=== PATIENT | male | born 1960 | race Caucasian/White ===

== ENCOUNTER 2022-03-22 05:33 | Day surgery (SDC) | payer OTHER ==
[2022-03-15 15:18] LABS: BASOPHILS % (AUTO) 0.3 % (0-1); EOSINOPHILS # (AUTO) 0.1 X10'3 (0-0.9); EOSINOPHILS % (AUTO) 1.9 % (0-6); LYMPHOCYTES # (AUTO) 1.5 X10'3 (1.1-4.8); LYMPHOCYTES % (AUTO) 23.3 % (21-51); MEAN CORPUSCULAR HEMOGLOBIN 29.2 PG (27.0-31.0); MEAN CORPUSCULAR HGB CONC 33.3 g/dL (33.0-36.5); MEAN CORPUSCULAR VOLUME 87.6 FL (78-98); MEAN PLATELET VOLUME 7.3 FL (7.4-10.4); MONOCYTES # (AUTO) 0.8 X10'3 (0-0.9); MONOCYTES % (AUTO) 12.5 % (2-12); NEUTROPHILS # (AUTO) 4.1 X10'3 (1.8-7.7); PRE OP HEMATOCRIT 46.9 % (42.0-52.0); PRE OP HEMOGLOBIN 15.6 g/dL (14.0-17.9); PRE OP PLATELET COUNT 220 X10'3 (140-440); RED BLOOD COUNT 5.36 X10'6 (4.70-6.10); RED CELL DISTRIBUTION WIDTH 14.2 % (11.5-14.5)
[2022-03-15 15:42] LABS: ALBUMIN 4.4 G/DL (3.4-5.0); ALBUMIN/GLOBULIN RATIO 1.3 (1.1-1.5); ALKALINE PHOSPHATASE 71 IU/L (46-116); BLOOD UREA NITROGEN 15 MG/DL (7-18); BUN/CREATININE RATIO 14.4 (5.4-32.0); CALCIUM 9.2 MG/DL (8.5-10.1); CHLORIDE 102 MMOL/L (99-107); CREATININE 1.04 MG/DL (0.60-1.10); PRE OP ALT 23 U/L (30-65); PRE OP ANION GAP 7 (8-16); PRE OP AST 22 U/L (10-37); PRE OP BILIRUB, TOTAL 0.4 MG/DL (0.0-1.0); PRE OP GLUCOSE 110 MG/DL (70-104); PRE OP POTASSIUM 3.8 MMOL/L (3.4-5.1); PRE OP SODIUM 140 MMOL/L (135-145); TOTAL CARBON DIOXIDE 30.7 MMOL/L (24-32); TOTAL PROTEIN 7.8 G/DL (6.4-8.2); eGFR 72 ML/MIN
[~2022-03-22] VITALS: Ht 177.8 cm; Wt 85.7 kg
[2022-03-22] VITALS (15 sets, daily range): BP systolic 131–169; BP diastolic 70–93
[~2022-03-22 05:33] MED LIST: ATOR40TA72 PO; ceFAZolin inj. 2,000 MG in dextrose 5%-water 100 ML IV ONE; famotidine 20mg tablet PO ONE; ringers solution, lacted 1,000 ML IV SCH
[2022-03-22] MEDS ORDERED: LIDOcaine 1% 30ml preserv. free vial ONE (07:02)
[2022-03-22] MEDS ORDERED: BUPIVAcaine/PF 2.5 mg/ml (0.25%) 30ml vial ONE (07:03)
[2022-03-22] MEDS ORDERED: fentaNYL/PF 50MCG/1 ML 2ML syringe ONE (07:30)
[2022-03-22] MEDS ORDERED: midazolam 1 mg/ML 2ml injection ONE (07:31)
[2022-03-22] MEDS ORDERED: propofol inj 20 ML IV ONE (07:33)
[2022-03-22] MEDS ORDERED: LIDOcaine 2% (20mg/ml) 5ml vial ONE (07:33)
[2022-03-22] MEDS ORDERED: rocuronium 10mg/ml inj IV ONE (07:33)
[2022-03-22] MEDS ORDERED: morphine 2 MG/ML inj. syringe IV PRN (08:25)
[2022-03-22] MEDS ORDERED: meperidine/PF 25mg/ml syringe IV PRN ×3 (08:25)
[2022-03-22] MEDS ORDERED: proCHLORperazine 10 MG/2 ml inj IV PRN (08:25)
[2022-03-22] MEDS ORDERED: morphine 4 MG/ML inj SYRINge IV PRN (08:25)
[2022-03-22] MEDS ORDERED: ringers solution, lacted 1,000 ML IV SCH (08:25)
[2022-03-22] MEDS ORDERED: ondansetron/PF 4mg/2ml inj IV PRN (08:25)
[2022-03-22] MEDS ORDERED: neostigmine methylsulfate 1 MG/ML 10ml vial ONE (08:30)
[2022-03-22] MEDS ORDERED: ondansetron/PF 4mg/2ml inj ONE (08:30)
[2022-03-22] MEDS ORDERED: glycopyrrolate 0.2mg/ml inj ONE (08:30)
[2022-03-22] MEDS ORDERED: dexamethasone sod phosphate 4mg/ml inj. ONE (08:30)
[2022-03-22] MEDS ORDERED: acetaminophen 1,000mg/100ml IV 100 ML IV ONE (08:51)
--- NOTE | 2022-03-22 09:03 | NUR ---
Received from OR via , accompanied by Anesthesiologist LACY and OR NURSE report given by Anesthesiolgist. PT IS DROWSY BUT RESPONDS TO VERBAL STIMULI. C/O PAIN TO ABDOMEN AT A NUMBER 5; PAIN MED GIVEN. 3 LAP SITES WITH BANDAIDS; CDI. 20G TO LEFT HAND. VSS Addendum: 03/22/22 at 1019 by Shira Hernandez RN Amended: Links added.
[2022-03-22] MEDS ORDERED: oxyCODONE/APAP 5-325mg tablet PO PRN ×2 (09:20→10:15)
== END 2022-03-22 10:53 | disposition home or self-care (01) ==
LOC: PAS 05:33
PROVIDERS: ATTEND Surgery
DX: K40.91 Unilateral inguinal hernia, without obstruction or gangrene, recurrent (principal); K40.90 Unilateral inguinal hernia, without obstruction or gangrene, not specified as recurrent; K42.9 Umbilical hernia without obstruction or gangrene; I25.10 Atherosclerotic heart disease of native coronary artery without angina pectoris; E78.5 Hyperlipidemia, unspecified; C67.9 Malignant neoplasm of bladder, unspecified; Z95.5 Presence of coronary angioplasty implant and graft; Z98.890 Other specified postprocedural states; Z82.49 Family history of ischemic heart disease and other diseases of the circulatory system; Z79.899 Other long term (current) drug therapy; Z87.891 Personal history of nicotine dependence; Z95.1 Presence of aortocoronary bypass graft; Z85.51 Personal history of malignant neoplasm of bladder
CPT/HCPCS: 36415; 38570; 49585; 49650; 49651; 80053; 82948; 85025; 93005; C1781; J0131; J0690; J1100; J2175; J2250; J2270; J2405; J2704; J2710; J3010; J3490; J7030; J7060; J7120; S2900; Z7506; Z7508; Z7512; A4215; A4618